=== PATIENT | male | born 1960 | race African-American/Black ===

== ENCOUNTER 2017-10-18 11:02 | Emergency (ER) | payer OTHER ==
[2017-10-18] MEDS ORDERED: Ketorolac Tromethamine 30 MG/ML VIAL ONE (11:32)
--- NOTE | 2017-10-18 12:09 | RAD ---
LEFT KNEE 4 VIEWS: Date: 10/18/17 HISTORY: Injury, left knee pain. FINDINGS/IMPRESSION: No fracture, dislocation, or bony destruction is identified. POS: OFF
== END 2017-10-18 11:49 | disposition home or self-care (01) ==
LOC: SCSER 11:02
DX: S83.412A Sprain of medial collateral ligament of left knee, initial encounter (principal); X50.1XXA Overexertion from prolonged static or awkward postures, initial encounter
CPT/HCPCS: 96372; J1885

== ENCOUNTER 2018-03-30 17:49 | Inpatient (IN) | payer OTHER ==
[2018-03-30] MEDS ORDERED: Ketorolac Tromethamine 30 MG/ML VIAL ONE (18:23)
--- NOTE | 2018-03-30 18:34 | RAD ---
FOUR VIEWS OF THE RIGHT KNEE: 03/30/18 COMPARISON: None. HISTORY: Fall with right leg pain. FINDINGS: Four views of the right knee shows a fracture of the lateral tibial plateau. This may extend to the t ibial spine medially. A small knee effusion is seen. No dislocation is present. IMPRESSION: Lateral tibial plateau fracture. POS: [facility]
[2018-03-30 19:13] LABS: Eosinophils 3 % (0-10); Hemoglobin 14.2 g/dL (14.0-18.0); Lymphocytes 40 % (21-51); MDiff Complete? YES; Mean Corpuscular HGB CONC 32.2 g/dL (32.0-36.0); Mean Corpuscular Hemoglobin 29.3 pg (27.0-31.0); Mean Corpuscular Volume 91.1 fL (78.0-98.0); Mean Platelet Volume 5.7 fL (7.4-10.4); Monocytes 5 % (0-10); Neutrophil 47 % (42-75); PLT Morphology Comment Appears Adequate; Platelet Count 300 thou/uL (130-400); RBC Distribution Width 11.3 % (11.5-14.5); Reactive Lymphocytes 5 % (0-10); Red Blood Cell (RBC) Count 4.84 mill/uL (4.70-6.10)
[2018-03-30 19:14] LABS: ALT (SGPT) 14 U/L (8-55); AST (SGOT) 19 U/L (5-34); Albumin 4.2 g/dL (3.5-5.0); Alkaline Phosphatase 69 U/L (40-150); Anion Gap 11 mmol/L (10-20); BUN (Urea Nitrogen) 11 mg/dL (8.4-25.7); Bilirubin, Total 0.6 mg/dL (0.2-1.2); Calc. Creatinine Clearance 0 mL/min (70-130); Calcium 9.5 mg/dL (7.8-10.44); Carbon Dioxide 28 mmol/L (22-29); Chloride 107 mmol/L (98-107); Estimated GFR-MDRD 84; Globulin 2.7 g/dL (2.4-3.5); Glucose 111 mg/dL (70-105); Potassium 3.7 mmol/L (3.5-5.1); Protein, Total 6.9 g/dL (6.0-8.3); Sodium 142 mmol/L (136-145)
[2018-03-30 19:15] LABS: CKMB 1.7 ng/mL (0-6.6); Troponin I Less than 0.010 ng/mL (< 0.028)
[2018-03-30] MEDS ORDERED: Morphine 4 MG/ML VIAL ONE (19:27)
[2018-03-30] MEDS ORDERED: Ondansetron ODT 4 MG TAB SL PRN (20:41)
[2018-03-30] MEDS ORDERED: Ondansetron HCl/PF 4 MG/2 ML Vial IVP PRN (20:41)
[2018-03-30] MEDS: Morphine 4 MG/ML VIAL SLOW IVP PRN (21:13)
[2018-03-30] MEDS: Sodium Chloride 0.9% 1,000 ML IV SCH (21:13)
[2018-03-31] MEDS: Sodium Chloride 0.9% 1,000 ML IV SCH (06:32)
[2018-03-31] MEDS: Morphine 4 MG/ML VIAL SLOW IVP PRN (06:32)
[2018-03-31] MEDS ORDERED: traMADol HCl 50 MG TAB PO PRN (07:32)
[2018-03-31] MEDS ORDERED: CEFAZOLIN/Water 2 GM/20 ML SYRINGE SLOW IVP SCH (07:45)
--- NOTE | 2018-03-31 08:08 | CON ---
CHIEF COMPLAINT: Right knee pain. HISTORY OF PRESENT ILLNESS: Mr. Payne is a 57-year-old male who was climbing a fence yesterday. He fell after tripping. He landed on his right leg. He had immediate pain. He had some swelling. He was unable to bear weight. He was seen in the Emergency Department. X-rays were obtained, which dem onstrated a lateral tibial plateau fracture. He was transferred from [place] to [place] for ad mission. He has been resting comfortably. No complaints or problems overnight. He is n.p.o. in pre paration for surgery. PAST MEDICAL HISTORY: Negative. PAST SURGICAL HISTORY: Previous right tibia fracture treated with intramedullary nail and then subse quent nail removal. PSYCHIATRIC HISTORY: Negative. SOCIAL HISTORY: The patient drinks alcohol daily. He denies tobacco or drug use. FAMILY MEDICAL HISTORY: Noncontributory. REVIEW OF SYSTEMS: Positive for mild right knee pain. IMAGES: X-rays demonstrate a lateral split and depressed tibial plateau fracture. PHYSICAL EXAMINATION: VITAL SIGNS: Temperature is 98.3, pulse is 67, O2 sat is 95%, blood pressure 139/79. GENERAL: He is alert, sitting upright in no apparent distress. HEENT: Normocephalic, atraumatic. RESPIRATORY: Breathing comfortably. ABDOMEN: Soft, nontender, nondistended. MUSCULOSKELETAL: The patient's right lower extremity is in a knee immobilizer. This was removed. Christina granados has very minimal swelling about the proximal tibia. He does have a positive knee effusion. He has pain to palpation laterally over the tibial plateau. He is neurovascularly intact distally. He has a palpable dorsalis pedis pulse. He is neurovascularly intact in the foot and ankle. IMPRESSION: Right tibial plateau fracture, lateral split depressed. PLAN: The patient will need to go to the operating room. He will plan for open reduction internal f ixation of the tibial plateau to restore anatomic alignment and promote appropriate healing. He is a hoffman of risks and benefits which do include infection, pain, scarring, nerve or vascular injury, DVT, PE, post-traumatic arthritis and others. He will have antibiotic prophylaxis and DVT prophylaxis.
--- NOTE | 2018-03-31 09:28 | CT ---
CT RIGHT KNEE WITHOUT CONTRAST: HISTORY: Right tibial plateau fracture. Preop study. Fall. COMPARISON: Radiograph from 03/30/2018. FINDINGS: There is a lateral split fracture of the lateral tibial plateau with depression of the weight bearing portions, a Schatzker II type fracture. There is depression of the central weight bearing surface, approximately a centimeter. From the tibial plateau, the fracture extends approximately 4.5 cm. The fracture does extend to the tibial tubercles. There is extrusion of the lateral segment through the sagittal split, approximately a centimeter. There is chondrocalcinosis of the medial meniscus. There is, however, also a hairline fracture throu gh the cortex of the medial tibial plateau, in a coronal direction, without articular surface step-of f. There is a fracture of the proximal tibia, at the proximal tibiofibular joint. Large lipohemarthrosis. IMPRESSION: 1. Schatzker II lateral split wedge fracture with depression at the weightbearing portion. The depr essed segment is depressed 1 centimeter, and the sagittal split fracture is displaced laterally 1.2 c m. 2. There is an associated nondepressed, coronally oriented fracture through the middle of the weight bearing surface in the medial tibial plateau. 3. The tibial sagittal split fracture extends 4.5 cm from the joint line. 4. Large lipohemarthrosis. POS: [facility]
[2018-03-31] MEDS ORDERED: Ondansetron HCl/PF 4 MG/2 ML Vial IVP PRN (09:30)
[2018-03-31] MEDS ORDERED: Dextrose 5% in Water 1,000 ML IV PRN (09:31)
[2018-03-31] MEDS ORDERED: Dextrose 50% Abboject 50 ML SYRINGE SLOW IVP PRN (09:31)
--- NOTE | 2018-03-31 12:21 | HP ---
DATE OF ADMISSION: 03/30/2018 ADMITTING PHYSICIAN: Dr. Ivan Love CONSULTING PHYSICIAN: Dr. Lake Alcantar with Trauma Surgery and Dr. Patel with Orthopedic Surgery. REASON FOR ADMISSION: Right lateral tibial plateau fracture. HISTORY OF PRESENT ILLNESS: Mr. Payne is a healthy 57-year-old male who was transferred to the Surgical Service overnight from [place] [facility] for a right lateral tibial plateau fracture after he was chasing his pet goats. The patient sustained no other injuries. He is hemodynamically stable and is being admitted for surgery and orthopedic evaluation. The patient is in a right straight knee brace. He has effective pain control and Orthopedic Surgery has seen him this morning. REVIEW OF SYSTEMS: Twelve point review of systems pertinent is negative per the HPI, but otherwise is regarded as negative. Positive only for right knee pain. PAST MEDICAL HISTORY: Denies. PAST SURGICAL HISTORY: He had a laminectomy [address] Orozco at [facility] and he has had a tib/fib fracture in the remote past that was operated on in the right leg. MEDICATIONS: Denies. DRUG ALLERGIES: Denies. SOCIAL HISTORY: The patient currently works as an electrician shop. He lives locally. He is a lifelong nonsmoker. No tobacco. Drinks 2 beers daily, but not every day. He can skip some and he has not withdrawn and no illicit drug use. FAMILY HISTORY: Significant for mother with diabetes and heart disease. PHYSICAL EXAMINATION: VITAL SIGNS: Blood pressure is 135/86, temperature is 98.4, heart rate is 70. He is breathing 18 times a minute. He is 97% on room air. GENERAL: A 57-year-old male sitting up in bed in no acute distress. HEENT: Normocephalic, atraumatic. Trachea is midline. NECK: No JVD is appreciated. RESPIRATORY: Equal rise and fall. No respiratory distress. CARDIOVASCULAR: Regular rate and rhythm. Strong pulses and no edema. ABDOMEN: Soft, nontender. PELVIS: Stable. MUSCULOSKELETAL: He has right leg, right knee pain in a straight leg brace. He does have CMS below the injury. Moves all extremities, otherwise no complaints. NEUROLOGIC: Alert and oriented to person, place, time and event. No gross deficits appreciated. PSYCHIATRIC: Normal mood and affect. SKIN: [place], warm and dry. DIAGNOSTIC DATA: White blood cell count of 5.0, hemoglobin and hematocrit 14.2 and 44.1 respectively, platelets are 300. Chemistry was normal. He has no elevation in his LFTs. He has lower extremity CT today that shows a Schatzker II lateral split wedge fracture with depression at the weightbearing portion depressed 1 cm in the sagittal split is displaced 1.2 cm laterally. ASSESSMENT: Right midshaft tibial fracture. PLAN: 1. Admit to Surgical Service. 2. Orthopedic consult. 3. Pain management per routine. 4. N.p.o. until after surgery. 5. Zofran for nausea as needed. 6. Perioperative antibiotics as needed. 7. We will reevaluate after surgery and consult with our orthopedic colleagues. Patient may be discharged tomorrow or even as early as this afternoon based on their recommendations, again we will follow up after surgery. 8. Prophylaxis will be Pepcid, SCDs on the left leg. We will withhold chemical DVT prophylaxis secondary to procedure. 9. Patient is a FULL CODE. 10. Diet: N.p.o. until after surgery. 11. Access: Peripheral IVs. 12. Bowel regimen per protocol. 13. Disposition: Surgical floor pending ortho procedures. 14. Activity: Nonweightbearing on the right leg. I have coordinated care with the Trauma Service, the trauma team. I have updated Mr. Payne at the bedside and answered all questions. CAPO
[2018-03-31] MEDS ORDERED: CEFAZOLIN/Water 2 GM/20 ML SYRINGE ONE (13:05)
[2018-03-31] MEDS ORDERED: Fentanyl 100 MCG/2 ML VIAL ONE ×3 (15:01→16:10)
--- NOTE | 2018-03-31 18:50 | RAD ---
TWO VIEWS OF THE RIGHT TIBIA AND FIBULA: 03/31/18 COMPARISON: 03/30/18. HISTORY: Lateral tibial plateau fracture of the tibia. FINDINGS/IMPRESSION: Multiple limited intraoperative fluoroscopic views of the right proximal tibia and fibula were perfor med. The patient is ongoing fixation of the lateral tibial plateau fracture with a side plate and scr ews. No perihardware lucency is seen. The fracture is better aligned than on the preoperative radiogr aph. POS: [facility]
[2018-03-31] MEDS: Famotidine 20 MG TAB PO SCH (20:37)
[2018-03-31] MEDS: Aspirin 81 mg Enteric Coated Tablet PO SCH (20:37)
[2018-04-01] MEDS: CEFAZOLIN/Water 2 GM/20 ML SYRINGE SLOW IVP SCH ×2 (00:19→05:59)
[2018-04-01] MEDS: HYDROcodone/Acetaminophen 10/325 mg Tablet PO PRN ×2 (03:23→13:33)
[2018-04-01] MEDS: Famotidine 20 MG TAB PO SCH (08:44)
[2018-04-01] MEDS: Aspirin 81 mg Enteric Coated Tablet PO SCH (08:44)
--- NOTE | 2018-04-01 10:49 | OP ---
DATE OF PROCEDURE: 03/31/2018 PREOPERATIVE DIAGNOSIS: Right joint depression lateral tibial plateau fracture. POSTOPERATIVE DIAGNOSES: Right bicondylar tibial plateau fracture with nondisplaced medial condyle a nd joint depressed lateral plateau. PROCEDURE: Open reduction internal fixation of right tibial plateau. ANESTHESIA: General. SURGEON: Oral Nash M.D. CORK SLABS SAWYER: Best Lubin PA-C. TOURNIQUET TIME: Approximately 60 minutes at 300 mmHg. IMPLANTS: Synthes 3.5 mm LCP proximal tibial locking plate, 8 holes. COMPLICATIONS: None. DRAINS: None. SPECIMEN: None. OUTCOME: Near anatomic alignment. INDICATIONS: The patient is a 57-year-old gentleman who is status post right knee injury while chasi ng his pet goats. Plain x-ray and CT scan demonstrates a depressed lateral tibial plateau. After di scussion with patient including risks and benefits, it was decided to proceed with an open reduction and internal fixation. Informed consent has been obtained. I believe all questions have been answer ed. PROCEDURE: After the induction of general anesthesia, a timeout was performed and then a sterile pre p and drape was performed of the right lower extremity. The limb was then exsanguinated with Esmarch bandage, tourniquet inflated to 300 mmHg. A curvilinear incision was made at the anterior lateral a spect of the proximal tibia. After skin was sharply incised, dissection was carried down bluntly to the underlying fascia overlying the anterior compartment proximally. The fascia was incised off of t he crest of the tibia and just below the flare of the lateral tibial plateau. Once the fascia was in cised the muscle belly was reflected off of the bone, exposing the anterior lateral tibial plateau. The fracture line was clearly visualized at this point and the fracture was opened and this allowed f or exposure of the severely depressed joint surface. The joint surface was then elevated using a bon e tamp with a combination of direct visualization as well as C-arm guidance. Once elevated to an ed ropriate level, a K-wire was placed provisionally to hold the plateau in good alignment while the lat eral cortex was then closed and a plate applied to the proximal lateral tibial plateau. A large clam p was then placed from medial to lateral across the joint surface compressing the plateau and gaining near anatomic alignment of the lateral plateau. At this point, a cortical screw was placed in the v ertical limb of the plate to hold the plate against the tibia and then 4 locking screws were placed i n rafter fashion underneath the joint surface of the tibial plateau bridging across to the medial susy e of the plateau. There was found to be just a slight cortical break on the medial side and as such felt to be bicondylar. Once the rafter screws were placed, additional cortical screws were placed di stally. At this point, a window was made in the lateral flare of the plateau using a large curet and then morcellized cancellous bone chips were packed under the plateau to provide a scaffolding for jayla ne remodeling and to further stabilize this depressed fragment. At the completion of this, AP, later al C-arm images showed near anatomic alignment of the fracture with appropriately positioned hardware . The wound was then irrigated with bulb syringe and then closed in layers with 0 Vicryl for the fas tess of the anterior compartment followed by 2-0 Vicryl and bradly for the skin. A Xeroform gauze, W ebril, Denilson wrap dressing, and knee immobilizer was applied to the knee and then patient was transferr ed to recovery room in stable condition. There were no complications. He tolerated the procedure we ll.
[2018-04-01 12:26] VITALS: BP 127/82; TEMP 99.4
--- NOTE | 2018-04-01 14:40 | DIS ---
DATE OF ADMISSION: 03/30/2018 DATE OF DISCHARGE: 04/01/2018 ADMITTING PHYSICIAN: Dr. Love. CONSULTING PHYSICIAN: Dr. Nash with Orthopedic Surgery. Dr. Alcantar with Trauma Surgery. DISCHARGING PHYSICIAN: Dr. Alcantar. REASON FOR ADMISSION: Right tibial plateau fracture. DISCHARGE DIAGNOSIS: Right tibial plateau fracture. PROCEDURES: Right tibial plateau fracture repair by Orthopedic Surgery. HOSPITAL COURSE: Mr. Payne is a healthy 57-year-old male who presented with a right tibial plateau f racture after a mechanical fall as he was chasing his goats. He was admitted to the surgical youssef. Orthopedic surgery was consulted. He was taken to the OR for operative repair. The patient tolerate d the procedure well and was brought back to the surgery youssef in stable condition. He is in a straig ht leg brace knee immobilizer. Pain control has been effective. The patient did have some slight na usea on postop day #1, but has been able to tolerate a diet. Vital signs have remained stable and milagros rees is anticipating discharge. He will go home. He has home support. Follow up with orthopedics in 7-10 days. The patient was given return precautions. He is ambulatory with PT on the date of dis charge, tolerating the diet well and in no acute distress. He will be sent home with pain control an d was given strict return precautions. I have answered all questions with the patient at the bedside . PHYSICAL EXAMINATION: VITAL SIGNS: Today; temperature is 99.4, blood pressure 127/82, heart rate is 86, respiratory rate 1 8, O2 sat is 96% on room air. GENERAL: A 57-year-old male, sitting up in bed in no acute distress. HEENT: Normocephalic, atraumatic. Trachea is midline. NECK: No JVD is appreciated. RESPIRATORY: Equal rise and fall. No respiratory distress. CARDIOVASCULAR: Regular rate and rhythm. Strong pulses, no edema. He does have sensation distally to his operative site in the affected extremity. ABDOMEN: Soft and nontender. MUSCULOSKELETAL: Moves all extremities. Does have a knee immobilizer straight leg brace to the righ t lower extremity, but otherwise no abnormalities. PSYCHIATRIC: Normal mood and affect. NEUROLOGIC: Alert and oriented to person, place, time, and event. SKIN: Normal ethnicity, warm and dry. DISCHARGE PLAN: Will be home with family assist and follow up with PT. DISCHARGE DIET: Regular. MEDICATIONS: Tramadol, ibuprofen, Tylenol, aspirin b.i.d. This is all explained to the patient including DVT prophylaxis and he verbalized understanding at the bedside. Greater than 30 minutes was taken in preparation of discharge in this patient.
== END 2018-04-01 15:30 | disposition home or self-care (01) | DRG 494 ==
LOC: SCSER 17:49 → SURG B 20:35
PROVIDERS: ADMIT Surgery; ATTEND Surgery
PROC: 0QSG04Z Reposition Right Tibia with Internal Fixation Device, Open Approach (ICD-10-PCS; principal; 2018-04-01)
DX: S82.141A Displaced bicondylar fracture of right tibia, initial encounter for closed fracture (principal); W17.89XA Other fall from one level to another, initial encounter; Y93.K9 Activity, other involving animal care; Z91.013 Allergy to seafood
CPT/HCPCS: 76001; 80053; 82553; 84484; 85025; 93005; 96372; 96374; A4216; C1713; G8978-GP-CK; G8979-GP-CJ; G8987-GO-CI; G8988-GO-CI; G8989-GO-CI; J1885; J2270; J2405; J3010